=== PATIENT | female | born 1965 | race Caucasian/White ===

== ENCOUNTER 2017-03-20 06:18 | Emergency (ER) | payer SELFPAY ==
[~2017-03-20] VITALS: Ht 162.6 cm; Wt 83.9 kg
[~2017-03-20 06:18] MED LIST: ADULT LOW DOSE81 M1 PO; ADVAIR HFA120 INHALA IH; ASPIR-LOW81 MG PO; ATARAX,VISTARIL25 MG PO; ATORVASTATIN CA80 MG PO; FLUCONAZOLE150 M2 PO; HYDROCHLOROTH12.5 M3 PO; IMITREX100 MG PO; KEFLEX500 MG PO; LEXAPRO10 MG PO; LOPRESSOR25 MG PO; MEDROL DOSEPAK4 MG PO; NICOTINE PATCH1 EAC2 TD; PRAVACHOL40 MG PO; PREDNISONE10 MG PO; PRILOSEC20 MG PO; SPIRIVA RESPIMAT4 GM IH; ULTRAM50 MG PO; ZANTAC150 M1 PO
[2017-03-20 07:20] LABS: HEMATOCRIT 44.9 % (36.0-46.0); MCH 30.6 PG (29.0-34.0); MCHC 33.9 G/DL (30.0-36.0); MCV 90.5 FL (83-99); MEAN PLAT.VOLUME 9.2 uM^3 (9.5-12.4); PLATELET COUNT 305 K/uL (156-360); RBC DIS.WIDTH-SD 47.2 % (39-53); RED BLOOD COUNT 4.96 M/uL (3.80-5.20)
[2017-03-20 07:55] LABS: ANION GAP 8 MEQ/L (2-14); CHLORIDE 108 MEQ/L (99-109); POTASSIUM 4.5 MEQ/L (3.7-5.4); SAMPLE HEMOLYSIS CHECK 0; SAMPLE ICTERIC CHECK 0; SAMPLE LIPEMIA CHECK 0; SODIUM 139 MEQ/L (136-147)
[2017-03-20 08:00] LABS: GFR ESTIMATE (CALCULATED) > 59 mL/min/; GLUCOSE 100 mg/dL (70-99); TROP-I INTERPRETATION NEGATIVE; TROPONIN-I < 0.01 ng/mL (0.0-0.30); UREA NITROGEN (BUN) 12 mg/dL (9-23)
[2017-03-20] MEDS ORDERED: FLEXERIL10 MG PO (08:13)
[2017-03-20] MEDS ORDERED: ULTRAM50 MG PO (08:13)
[2017-03-20 08:24] VITALS: BP 151/91
== END 2017-03-20 08:26 | disposition home or self-care (01) ==
LOC: EME 06:18
PROVIDERS: Nurse Practitioner Family
DX: M94.0 Chondrocostal junction syndrome [Tietze] (principal); J44.9 Chronic obstructive pulmonary disease, unspecified; K21.9 Gastro-esophageal reflux disease without esophagitis; I10 Essential (primary) hypertension; E78.5 Hyperlipidemia, unspecified; F17.200 Nicotine dependence, unspecified, uncomplicated
CPT/HCPCS: 71020; 80048; 84484; 85027; 93005; 99281; 99284